=== PATIENT | female | born 1985 | race American Indian/Alaskan Native ===

== ENCOUNTER 2018-11-06 17:13 | Emergency (ER) | payer SELFPAY ==
[2018-11-06 17:30] VITALS: BP 127/69
--- NOTE | 2018-11-06 17:31 | Emergency Department Report ---
Blank Doc - Documentation Documentation: This is a 33 y.o. female that presents to ED with abdominal pain that started last night. cc: nausea and abdominal pain Abdomen: LUQ tenderness, normal bs x 4 quad Ordered labs and CT of abdomen w/o contrast. Fast track for further evaluation.
[2018-11-06] MEDS ORDERED: TORADOL IV ONE (18:25)
--- NOTE | 2018-11-06 18:26 | Emergency Department Report ---
ED Abdominal Pain HPI - General Chief Complaint: Abdominal Pain Stated Complaint: ABD PAIN Time Seen by Provider: 11/06/18 17:28 Source: patient Mode of arrival: Ambulatory Limitations: No Limitations - History of Present Illness Initial Comments: Pt is a 33 yo female who presents to the ED with c/o generalized upper abdominal pain that began today. She describes the pain as sharp. She has associated nausea and anorexia. The patient denies any fever, urinary sx, constipation, V/D. She denies any PSHx. She denies any alleviating or aggravating factors. She did not try any treatment to alleviate her pain. MD Complaint: abdominal pain -: This morning Location: LUQ, RUQ Radiation: none Migration to: no migration Severity scale (0 -10): 10 Quality: stabbing Consistency: constant Improves With: nothing Worsens With: nothing Associated Symptoms: nausea, anorexia. denies: vomiting, diarrhea, fever, chills, constipation, dysuria, hematemesis, hematochezia, melena, hematuria, syncope - Related Data Previous Rx's Medication Instructions Recorded Last Taken Type Ondansetron [Zofran Odt] 4 mg PO Q8HR PRN #10 tab.rapdis 11/06/18 Unknown Rx Simethicone [Gas-X] 62.5 mg PO QID PRN #30 strip 11/06/18 Unknown Rx Allergies Allergy/AdvReac Type Severity Reaction Status Date / Time No Known Allergies Allergy Verified 11/06/18 22:31 ED Review of Systems ROS: Stated complaint: ABD PAIN Other details as noted in HPI Comment: All other systems reviewed and negative Gastrointestinal: as per HPI ED Past Medical Hx - Past Medical History Previous Medical History?: No - Surgical History Past Surgical History?: No - Social History Smoking Status: Current Every Day Smoker Substance Use Type: None - Medications Home Medications: Home Medications Medication Instructions Recorded Confirmed Last Taken Type Ondansetron [Zofran Odt] 4 mg PO Q8HR PRN #10 tab.rapdis 11/06/18 Unknown Rx Simethicone [Gas-X] 62.5 mg PO QID PRN #30 strip 11/06/18 Unknown Rx ED Physical Exam - General Limitations: No Limitations General appearance: alert, in no apparent distress - Head Head exam: Present: atraumatic, normocephalic - Eye Eye exam: Present: normal appearance - ENT ENT exam: Present: mucous membranes moist - Respiratory Respiratory exam: Present: normal lung sounds bilaterally. Absent: respiratory distress, wheezes, rales, rhonchi, stridor - Cardiovascular Cardiovascular Exam: Present: regular rate, normal rhythm, normal heart sounds. Absent: systolic murmur, rubs, gallop - GI/Abdominal GI/Abdominal exam: Present: soft, tenderness (upper quadrants ), guarding (voluntary ), normal bowel sounds. Absent: distended, rebound, rigid, mass, bruit - Neurological Exam Neurological exam: Present: alert, oriented X3 - Psychiatric Psychiatric exam: Present: normal affect, normal mood - Skin Skin exam: Present: warm, dry, intact ED Course Vital Signs 11/06/18 11/06/18 11/06/18 17:28 18:38 18:41 Temperature 98.4 F Pulse Rate 96 H Respiratory 16 16 16 Rate Blood Pressure 127/69 11/06/18 19:11 Temperature Pulse Rate Respiratory 16 Rate Blood Pressure - Reevaluation(s) Reevaluation #1: 11/06/18 22:39 after receiving 2mg of morphine pt states abdominal pain has completely resolved and she feels much better ED Medical Decision Making - Lab Data Result diagrams: 11/06/18 18:00 11/06/18 18:00 Laboratory Tests 11/06/18 11/06/18 11/06/18 18:00 18:00 18:00 WBC 9.5 RBC 4.09 Hgb 12.2 Hct 35.7 MCV 87 MCH 30 MCHC 34 RDW 19.2 H Plt Count 279 Lymph % (Auto) 7.9 L Clarke % (Auto) 6.1 Eos % (Auto) 0.2 Baso % (Auto) 0.3 Lymph # 0.7 L Clarke # 0.6 Eos # 0.0 Baso # 0.0 Seg Neutrophils % 85.5 H Seg Neutrophils # 8.1 H Sodium 134 L Potassium 3.3 L Chloride 99.3 Carbon Dioxide 23 Anion Gap 15 BUN 6 L Creatinine 0.6 L Estimated GFR > 60 BUN/Creatinine Ratio 10 Glucose 86 Calcium 8.4 Total Bilirubin 0.60 AST 11 ALT 12 Alkaline Phosphatase 41 Total Protein 6.7 Albumin 3.9 Albumin/Globulin Ratio 1.4 HCG, Qual Negative Urine Color Urine Turbidity Urine pH Ur Specific [place] Urine Protein Urine Glucose (UA) Urine Ketones Urine Blood Urine Nitrite Urine Bilirubin Urine Urobilinogen Ur Leukocyte Esterase Urine WBC (Auto) Urine RBC (Auto) U Epithel Cells (Auto) Urine Mucus 11/06/18 18:37 WBC RBC Hgb Hct MCV MCH MCHC RDW Plt Count Lymph % (Auto) Clarke % (Auto) Eos % (Auto) Baso % (Auto) Lymph # Clarke # Eos # Baso # Seg Neutrophils % Seg Neutrophils # Sodium Potassium Chloride Carbon Dioxide Anion Gap BUN Creatinine Estimated GFR BUN/Creatinine Ratio Glucose Calcium Total Bilirubin AST ALT Alkaline Phosphatase Total Protein Albumin Albumin/Globulin Ratio HCG, Qual Urine Color Yellow Urine Turbidity Clear Urine pH 5.0 Ur Specific [place] 1.011 Urine Protein <15 mg/dl Urine Glucose (UA) Neg Urine Ketones Neg Urine Blood Neg Urine Nitrite Neg Urine Bilirubin Neg Urine Urobilinogen < 2.0 Ur Leukocyte Esterase Neg Urine WBC (Auto) < 1.0 Urine RBC (Auto) 1.0 U Epithel Cells (Auto) 3.0 Urine Mucus Few - Medical Decision Making Pt with upper abdominal pain that began today. Pt has associated nausea but no other sx. CT abd/pelvis with IV contrast shows no acute abnormality. Pt WBC is normal, urine is normal, mild hypokalemia repleted. Advised pt bland diet and to increase fluid intake. Pt states pain has completely resolved after pain medication. Will send patient home with prescription for zofran and gas x. Advised to return to ED if new or worsening sx or if sx do not improve. Advised to follow up with PCP in the next 2-3 days. Critical care attestation.: If time is entered above; I have spent that time in minutes in the direct care of this critically ill patient, excluding procedure time. ED Disposition Clinical Impression: Hypokalemia, Nausea Abdominal pain Qualifiers: Abdominal location: upper abdomen, unspecified Qualified Code(s): R10.10 - Upper abdominal pain, unspecified Disposition: DC-01 TO HOME OR SELFCARE Is pt being admited?: No Does the pt Need Aspirin: No Condition: Stable Additional Instructions: Follow up with PCP in the next 2-3 days. Return to ED if new/worsening symptoms or if symptoms do not resolve. Prescriptions: Ondansetron [Zofran Odt] 4 mg PO Q8HR PRN #10 tab.rapdis PRN Reason: Nausea Simethicone [Gas-X] 62.5 mg PO QID PRN #30 strip PRN Reason: Gas Pain Referrals: WHIPPANY ALEC TURPIN MD [Primary Care Provider] - 3-5 Days Time of Disposition: 22:32 Print Language: TURKISH
[2018-11-06 18:32] LABS: Basophils % (Auto) 0.3 % (0.0-1.8); Eosinophils % (Auto) 0.2 % (0.0-4.3); Hematocrit 35.7 % (30.3-42.9); Hemoglobin 12.2 gm/dl (10.1-14.3); Lymphocytes # (Auto) 0.7 K/mm3 (1.2-5.4); Lymphocytes % (Auto) 7.9 % (13.4-35.0); Mean Corpuscular HGB Conc 34 % (30-34); Mean Corpuscular Volume 87 fl (79-97); Monocytes # (Auto) 0.6 K/mm3 (0.0-0.8); Monocytes % (Auto) 6.1 % (0.0-7.3); Platelet Count 279 K/mm3 (140-440); Red Blood Count 4.09 M/mm3 (3.65-5.03); Red Cell Distribution Width 19.2 % (13.2-15.2)
[2018-11-06] MEDS ORDERED: TORADOL IM ONE (18:40)
[2018-11-06 18:51] LABS: Alanine Aminotransferase 12 units/L (7-56); Albumin 3.9 g/dL (3.9-5); BUN/Creatinine Ratio 10; Blood Urea Nitrogen 6 mg/dL (7-17); Calcium 8.4 mg/dL (8.4-10.2); Hemolysis Index 6
[2018-11-06 18:54] LABS: Bilirubin,Urine NEG (Negative); Color,Urine Yellow (Yellow)
[2018-11-06 18:55] LABS: Blood,Urine NEG (Negative); Mucus,Urine FEW /HPF; Protein,Urine <15 mg/dL mg/dL (Negative); Urobilinogen,Urine < 2.0 mg/dL (<2.0); WBC,Urine < 1.0 /HPF (0.0-6.0)
--- NOTE | 2018-11-06 21:21 | Cat Scan Report ---
PROCEDURE: CT abdomen and pelvis with contrast. TECHNIQUE: Computerized axial tomography of the abdomen and pelvis was performed after the IV inject ion of iodinated nonionic contrast. CT DOSE LENGTH PRODUCT: 1150.13 mGycm HISTORY: Upper abdominal pain, left costovertebral angle tenderness. COMPARISONS: None. FINDINGS: The lung bases are clear. There are no pleural effusions. The heart size is normal. The liver, pancre as and spleen appear normal. The gallbladder is present. The adrenal glands are not enlarged. Both ki dneys appear normal in size and configuration. The abdominal aorta has a normal caliber. There is no retroperitoneal adenopathy. The unopacified gastrointestinal tract is unremarkable. The appendix is n ot visualized. The bladder, uterus and adnexal regions are unremarkable. The regional skeleton appear s intact. IMPRESSION: Normal studies of the abdomen and pelvis. This document is electronically signed by Hill Melgar MD., November 06 2018 09:18:20 PM ET
[2018-11-06] MEDS ORDERED: MORPHINE ONE (21:24)
[2018-11-06] MEDS ORDERED: MORPHINE IV ONE (21:25)
[2018-11-06] MEDS ORDERED: K-DUR PO ONE (22:16)
== END 2018-11-06 22:50 | disposition home or self-care (01) ==
LOC: ED 17:13
DX: E87.6 Hypokalemia (principal); R10.10 Upper abdominal pain, unspecified; R11.0 Nausea; F17.200 Nicotine dependence, unspecified, uncomplicated
CPT/HCPCS: 36415; 74177; 80053; 81001; 84703; 85025; 96372; 96374; 99284; J1885; J2270; Q9967